=== PATIENT | female | born 1975 | race Caucasian/White ===

== ENCOUNTER 2016-10-29 15:55 | Emergency (ER) | payer OTHER ==
[~2016-10-29] VITALS: Ht 154.9 cm; Wt 57.6 kg
[2016-10-29 15:58] VITALS: BP 142/65
[2016-10-30] MEDS ORDERED: TIZA4CAP3 PO (21:31)
[2016-10-30] MEDS ORDERED: MELO7.5T6 PO (21:31)
[2016-10-30] MEDS ORDERED: SOMA350T PO (23:47)
[2016-10-30] MEDS ORDERED: NAPR500T PO (23:47)
== END 2016-10-29 18:16 | disposition left against medical advice (07) ==
LOC: M ED 16:51
DX: R03.0 Elevated blood-pressure reading, without diagnosis of hypertension (principal); Z88.0 Allergy status to penicillin; Z88.5 Allergy status to narcotic agent

== ENCOUNTER 2016-10-30 21:19 | Emergency (ER) | payer OTHER ==
[~2016-10-30] VITALS: Ht 154.9 cm; Wt 57.6 kg
[2016-10-30] MEDS ORDERED: TIZA4CAP3 PO (21:31)
[2016-10-30] MEDS ORDERED: MELO7.5T6 PO (21:31)
[2016-10-30] MEDS ORDERED: KETOROLAC 60 MG/2 ML VIAL (J1885) IM ONE (22:15)
[2016-10-30] MEDS ORDERED: NAPR500T PO (23:47)
[2016-10-30] MEDS ORDERED: SOMA350T PO (23:47)
[2016-10-30 23:50] VITALS: BP 134/64
== END 2016-10-31 00:01 | disposition home or self-care (01) ==
LOC: M ED 22:36
DX: M54.9 Dorsalgia, unspecified (principal); R51 Headache
CPT/HCPCS: 96372; 99281; J1885; J3360

== ENCOUNTER 2016-11-05 05:09 | Emergency (ER) | payer OTHER ==
[~2016-11-05] VITALS: Ht 154.9 cm; Wt 57.6 kg
[~2016-11-05 05:09] MED LIST: MELO7.5T6 PO; NAPR500T PO; SOMA350T PO; TIZA4CAP3 PO
[2016-11-05 05:31] VITALS: BP 138/83
[2016-11-05] MEDS ORDERED: DIAZ5TAB (05:38)
[2016-11-05] MEDS ORDERED: OXYCODONE-ACETAMINOPHEN (05:38)
== END 2016-11-05 07:29 | disposition home or self-care (01) ==
LOC: M ED 05:29
DX: S63.91XA Sprain of unspecified part of right wrist and hand, initial encounter (principal); Y04.0XXA Assault by unarmed brawl or fight, initial encounter; Y92.230 Patient room in hospital as the place of occurrence of the external cause; Y93.89 Activity, other specified; Y99.0 Civilian activity done for income or pay

== ENCOUNTER → 2016-12-08 | Outpatient (CLI) | payer OTHER ==
[~2016-12-08] MED LIST changes: +DIAZ5TAB; +OXYCODONE-ACETAMINOPHEN
--- NOTE | 2016-12-08 18:58 | REP ---
Clinical: Acute pain. Technique: AP, lateral, bilateral oblique and sunrise views right knee. Findings: The osseous structures and joint spaces are intact and normal for age. There is no evidence for acute fracture or dislocation. No joint effusion is appreciated. Surrounding soft tissues are unremarkable. No subcutaneous emphysema or radiodense foreign body. Impression: Normal examination. No acute fracture or dislocation. Signed by Gustavo Rivera MD 12/08/2016 06:50 P
== END ==
LOC: M LRY 18:24
PROVIDERS: ATTEND Physician Assistant
DX: M25.561 Pain in right knee (principal)
CPT/HCPCS: 73564; G0463